=== PATIENT | male | born 1965 | race Caucasian/White ===

== ENCOUNTER → 2019-08-27 09:46 | Outpatient (CLI) | payer BC, SELFPAY ==
--- NOTE | 2019-08-27 10:05 | XR_ITS ---
PROCEDURE: XR CHEST 2V CLINICAL HISTORY: ACUTE VIRAL BRONCHITIS, WHEEZING Wheezing cough shortness of air COMPARISON: CXR CHEST(2 VIEWS-NOT PORTABLE) from 05/19/2014 FINDINGS: The cardiomediastinal silhouette and pulmonary vascularity are within normal limits. The lungs are clear without infiltrates, suspicious nodules, or pleural effusions. Calcified granuloma is present in the right lower lobe. No acute bony findings. IMPRESSION: No acute findings. Dictated by: Saurabh Benson MD 08/27/2019 10:20 Electronically signed by Saurabh Benson MD in [place] 08/27/2019 10:20
[2019-08-27 10:08] LABS: Basophils # 0.1 K/mm3 (0-0.2); Basophils % 0.9 % (0.1-2.0); Eosinophils # 0.1 K/mm3 (0.0-0.4); Eosinophils % 1.4 % (0.1-12.0); Hematocrit 48.4 % (42.0-52.0); Lymphocytes # 2.2 K/mm3 (0.7-4.5); Mean Corpuscular Hemoglobin 28.8 pg (27.0-31.2); Mean Corpuscular Volume 87.2 fl (80-94); Mean Platelet Volume 7.5 fl (7.4-10.4); Monocytes # 0.4 K/mm3 (0.1-1.0); Monocytes % 6.4 % (1.7-9.3); Neutrophils # 3.7 K/mm3 (1.8-7.8); Neutrophils % 57.2 % (37.0-80.0); Platelet Count 243 K/mm3 (142-424); Red Blood Count 5.55 M/mm3 (4.60-6.20); Red Cell Distribution Width 12.8 % (11.5-17.5); White Blood Count 6.5 K/mm3 (4.8-10.8)
[2019-08-27 11:04] LABS: Chloride 100 mmol/L (98-107); Potassium 4.8 mmoL/L (3.5-5.1); Sodium 138 mmol/L (136-145)
[2019-08-27 11:06] LABS: Alanine Aminotransferase 44 U/L (12-78); Alkaline Phosphatase 92 U/L (38-126); Anion Gap 16.8 mEq/L (5-15); Aspartate Amino Transferase 31 U/L (17-59); Bilirubin,Total 0.8 mg/dl (0.2-1.3); Blood Urea Nitrogen 23 mg/dl (9-20); Carbon Dioxide 26 mmol/L (22.0-30.0); Estimated Glomerular Filt Rate 88 ml/min (>60); GFR (African American) 107 ML/MIN (>60)
[2019-08-27 11:07] LABS: Albumin Level 4.7 g/dl (3.5-5.0); Albumin/Globulin Ratio 1.7 (1.1-1.8); Calcium 9.8 mg/dl (8.4-10.2); Creatine Kinase 174 U/L (55-170); Globulin 2.8 g/dL (1.3-3.2); Glucose 153 mg/dl (74-100); Total Protein,Serum 7.5 g/dl (6.3-8.2)
== END ==
PROVIDERS: PCP Internal Medicine Adolescent Medicine; Visit Provider Internal Medicine Adolescent Medicine
DX: J20.8 Acute bronchitis due to other specified organisms (principal); R06.2 Wheezing; M79.10 Myalgia, unspecified site
CPT/HCPCS: 36415; 71046; 80053; 82550; 83735; 85025

== ENCOUNTER → 2019-10-11 13:11 | Outpatient (CLI) | payer BC, SELFPAY ==
[2019-10-11 16:36] LABS: Chloride 98 mmol/L (98-107)
[2019-10-11 16:37] LABS: Potassium 4.9 mmoL/L (3.5-5.1); Sodium 136 mmol/L (136-145)
[2019-10-11 16:39] LABS: Blood Urea Nitrogen 15 mg/dl (9-20); Estimated Glomerular Filt Rate 101 ml/min (>60); GFR (African American) 122 ML/MIN (>60)
[2019-10-11 16:40] LABS: Anion Gap 13.9 mEq/L (5-15); Calcium 9.9 mg/dl (8.4-10.2); Carbon Dioxide 29 mmol/L (22.0-30.0); Glucose 104 mg/dl (74-100)
== END ==
PROVIDERS: Visit Provider Nurse Practitioner Family
DX: R25.2 Cramp and spasm (principal)
CPT/HCPCS: 36415; 80048; 83735

== ENCOUNTER → 2021-06-18 11:10 | Outpatient (CLI) | payer BC, SELFPAY ==
[2021-06-18 12:16] LABS: Chloride 100 mmol/L (98-107); Sodium 137 mmol/L (136-145)
[2021-06-18 12:17] LABS: Potassium 4.3 mmoL/L (3.5-5.1)
[2021-06-18 12:19] LABS: Blood Urea Nitrogen 17 mg/dl (9-20)
[2021-06-18 12:20] LABS: Anion Gap 15.3 mEq/L (5-15); Calcium 9.2 mg/dl (8.4-10.2); Carbon Dioxide 26 mmol/L (22.0-30.0); Estimated Glomerular Filt Rate 117 ml/min (>60); GFR (African American) 142 ML/MIN (>60); Glucose 144 mg/dl (74-100)
[2021-06-18 12:51] LABS: Hemoglobin A1C 7.1 % (4.0-6.0)
== END ==
PROVIDERS: Visit Provider Internal Medicine Adolescent Medicine
DX: I10 Essential (primary) hypertension (principal)
CPT/HCPCS: 36415; 80048; 83036

== ENCOUNTER → 2021-07-13 08:56 | Outpatient (CLI) | payer BC, SELFPAY | PROVIDERS: PCP Internal Medicine Adolescent Medicine; Visit Provider Surgery | DX: Z01.812 Encounter for preprocedural laboratory examination (principal); Z11.52 Encounter for screening for COVID-19; Z12.11 Encounter for screening for malignant neoplasm of colon | CPT/HCPCS: C9803; U0003; U0005 ==

== ENCOUNTER 2021-07-16 09:08 | Day surgery (SDC) | payer BC, SELFPAY ==
[2021-07-12 11:05] VITALS: BMI 37.0
[2021-07-16 09:21] VITALS: BP 152/90; PULSE 84; RESP 18; TEMP 36.8; O2SAT 96
[2021-07-16 09:31] VITALS: O2SAT 96
--- NOTE | 2021-07-16 09:34 | P.PN_ITS ---
[facility] Anesthesia Checklist - Patient Identification Patient Identification: Arm Band - Structural Data Admitted From: Home Planned Operative Procedure/s: Colonoscopy Consent for Planned Operative Procedure(s) Verified: Yes - NPO Status Verified Time NPO: 00:00 - Airway Assessment C-Spine Mobility Assessed: Yes TMJ Mobility Assessed: Yes Dentition: Good Dentition - Neurological Assessment Level of Consciousness: Awake Hx Seizures: No Numbness or tingling in extremities: No - Anesthesia Plan Anesthesia Risk discussed: Yes Anesthesia Plan: Verified ASA Class: II Anesthesia Type: MAC [facility] History I have reviewed the patient's past medical history: Yes Medical History: Reports:: Diabetes Mellitus Type 2, Hypertension, MRSA (abdomen) Denies:: Cancer, Diabetes Mellitus Type 1, Internal Pacemaker, Seizures *Have you ever received a pneumonia vaccine?: No *Have you received a flu vaccine this season?: No Anesthesia experience/problems:: None Other Surgeries: No: Pacemaker Amputation: No - *Social History Last grade of school completed: Some college Smoking Status: Never smoker Alcohol Intake: never Substance Use Type: denies use *Occupational Status:: employed Housing: house Household Members: spouse *Travel in the last 8 weeks: None Family Hx:: Cancer, Coronary Artery Disease
--- NOTE | 2021-07-16 09:58 | P.PCN_ITS ---
- Procedure: Date: 07/16/21 Patient Date of :: 1965 Procedure Performed:: Colonoscopy with polypectomy Indications:: Screening Performing Provider:: Andrés Pillai MD Referring Provider:: . Sedation:: Monitored anesthesia care Procedure:: After informed consent was obtained the patient was taken to the endoscopy suite. Sedation ensued after the patient was transferred to the left lateral decubitus position. Pulse, blood pressure, and oxygen saturation were monitored throughout the procedure. Digital rectal exam revealed no significant ab normality. The colonoscope was placed in position. The entire colon was evaluated. The colonoscope was carefully removed and the patient was transferred to recovery in stable condition. Please see findings and specimens below for detail. Findings:: Mild anal stenosis Scattered diverticulosis Bowel preparation moderate to poor Fairly significant lack of relaxation/spasticity Complex polyps (see specimens) Specimens:: Lobulated/partially ulcerated sessile polyp at 70 cm (snare) Sessile lobulated polyp at 55 cm (snare) Recommendations:: Timing a repeat colonoscopy is pending pathology but likely between 6-12 months secondary to size/nature of polyps and limitations of visualization due to moderate to poor bowel preparation and spasticity/lack of relaxation. Complications:: No immediate Estimated blood obtained (mL): 1
[2021-07-16 09:59] VITALS: BP 148/82; PULSE 84; RESP 18; TEMP 36.4; O2SAT 90
[2021-07-16 10:09] VITALS: BP 130/91; PULSE 82; RESP 18; O2SAT 94
[2021-07-16 10:19] VITALS: BP 93/63; PULSE 67; RESP 16; O2SAT 96
[2021-07-16 10:30] VITALS: BP 122/68; PULSE 68; RESP 18; O2SAT 97
[2022-03-27 10:56] LABS: POC Glucose,Bedside 135 (70-110)
== END 2021-07-16 10:30 | disposition home or self-care (01) ==
LOC: OUTP 09:09
PROVIDERS: PCP Internal Medicine Adolescent Medicine; Visit Provider Surgery
PROC: 0DJD8ZZ Inspection of Lower Intestinal Tract, Via Natural or Artificial Opening Endoscopic (ICD-10-PCS; CPT 45385; principal; 2021-07-16 10:00)
DX: Z12.11 Encounter for screening for malignant neoplasm of colon (principal); K62.4 Stenosis of anus and rectum; K63.5 Polyp of colon; K57.32 Diverticulitis of large intestine without perforation or abscess without bleeding; K58.9 Irritable bowel syndrome, unspecified; E11.9 Type 2 diabetes mellitus without complications; I10 Essential (primary) hypertension; Z86.14 Personal history of Methicillin resistant Staphylococcus aureus infection; Z80.9 Family history of malignant neoplasm, unspecified; Z82.49 Family history of ischemic heart disease and other diseases of the circulatory system
CPT/HCPCS: 45385; 82962; J2704

== ENCOUNTER → 2023-06-10 16:16 | Outpatient (CLI) | payer BC, SELFPAY ==
[2023-06-10 17:00] LABS: Basophils # 0.1 K/mm3 (0-0.2); Basophils % 1.1 % (0.1-2.0); Eosinophils # 0.2 K/mm3 (0.0-0.4); Eosinophils % 2.7 % (0.1-12.0); Hematocrit 47.2 % (42.0-52.0); Lymphocytes % 37.1 % (10-50); Mean Corpuscular HGB Conc 33.9 g/dL (31.8-35.4); Mean Corpuscular Hemoglobin 29.6 pg (27.0-31.2); Mean Corpuscular Volume 87.5 fl (80-94); Mean Platelet Volume 8.2 fl (7.4-10.4); Monocytes # 0.5 K/mm3 (0.1-1.0); Monocytes % 6.3 % (1.7-9.3); Neutrophils # 4.3 K/mm3 (1.8-7.8); Neutrophils % 52.9 % (37.0-80.0); Platelet Count 235 K/mm3 (142-424); Red Blood Count 5.39 M/mm3 (4.60-6.20); White Blood Count 8.1 K/mm3 (4.8-10.8)
[2023-06-10 17:13] LABS: Alanine Aminotransferase 41 U/L (12-78); Albumin Level 4.7 g/dl (3.5-5.0); Albumin/Globulin Ratio 1.7 (1.1-1.8); Alkaline Phosphatase 85 U/L (38-126); Anion Gap 11.2 mEq/L (5-15); Aspartate Amino Transferase 43 U/L (17-59); Bilirubin,Total 0.7 mg/dl (0.2-1.3); Blood Urea Nitrogen 19 mg/dl (9-20); Calcium 9.2 mg/dl (8.4-10.2); Carbon Dioxide 29 mmol/L (22.0-30.0); Chloride 100 mmol/L (98-107); Estimated Glomerular Filt Rate 77 ml/min (>60); GFR (African American) 93 ML/MIN (>60); Globulin 2.7 g/dL (1.3-3.2); Glucose 172 mg/dl (74-100); Potassium 4.2 mmoL/L (3.5-5.1); Sodium 136 mmol/L (136-145); Total Protein,Serum 7.4 g/dl (6.3-8.2)
[2023-06-10 17:18] LABS: C-Reactive Protein 2.4 mg/L (0-4)
[2023-06-10 17:43] LABS: Thyroid Stimulating Hormone 2.26 uIU/mL (0.465-4.68)
[2023-06-10 18:10] LABS: Erythrocyte Sedimentation Rate 12 mm/hr (0-20)
[2023-06-12 12:27] LABS: Rapid Plasma Reagin Ab Titer Non Reactive titer (NonRea<1:1)
[2023-06-19 12:10] LABS: HLA-B27 Negative (.)
[2023-06-23 09:00] LABS: Antinuclear Antibodies, IFA POSITIVE
== END ==
PROVIDERS: PCP Nurse Practitioner Family; Visit Provider Nurse Practitioner Family
DX: H20.12 Chronic iridocyclitis, left eye (principal)
CPT/HCPCS: 36415; 80053; 84443; 85025; 85651; 86038; 86140; 86593; 86812

== ENCOUNTER 2023-10-13 09:28 | Day surgery (SDC) | payer BC, SELFPAY ==
[2023-10-09 14:18] VITALS: BMI 31.1
--- NOTE | 2023-10-13 09:47 | ECG_ITS ---
APPROVED REPORT Exam: Resting ECG HR:52 bpm ECG Measurements Heart Rate 52 AXES VT 153 P 14 QRSd 94 QRS -4 QT 426 T 40 QTc 407 Conclusion SINUS BRADYCARDIA BORDERLINE ECG UNCONFIRMED REPORT Electronically signed by : Dewayne Hemphill MD 10/14/2023 08:21:11
[2023-10-13 09:48] VITALS: BP 116/65; PULSE 54; RESP 16; TEMP 36.6; O2SAT 100
[2023-10-13] MEDS: LACTATED RINGERS 1000ML 1,000 ML 25 ML IV (09:48)
[2023-10-13 09:57] LABS: POC Glucose,Bedside 81 (70-110)
--- NOTE | 2023-10-13 10:26 | EXP.ANES.CKL ---
[facility] Disclaimer: The information contained in this section may have been updated after the patient was seen, as this information can be updated by other users. 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 occupational exposures/hazards: Yes caffeine: Yes [facility] Anesthesia Checklist Patient Identification Patient Identification: Arm Band and Verbal (Name & ) Structural Data Admitted From: Home Planned Operative Procedure/s: Colonoscopy Consent for Planned Operative Procedure(s) Verified: Yes NPO Status Verified Time NPO: 00:00 Additional verifications Anesthesia Reactions: No Airway Assessment Mallampati Score:: Class I C-Spine Mobility Assessed: Yes TMJ Mobility Assessed: Yes Dentition: Good Dentition Neurological Assessment Level of Consciousness: Awake Hx Seizures: No Numbness or tingling in extremities: No Anesthesia Plan Anesthesia Risk discussed: Yes Anesthesia Plan: Verified ASA Class: II Anesthesia Type: MAC
--- NOTE | 2023-10-13 10:28 | HMH.SCOPE ---
Procedure: Date: 10/13/23 Patient Date of :: 1965 Procedure Performed:: Colonoscopy with polypectomy by means other than snare Indications:: History of colon polyps Note: Colonoscopy in June 2021 somewhat complicated by moderate to poor bowel preparation and poor relaxation/spasticity. Mild anal stenosis and diverticulosis noted. Complex adenomas excised at 70 cm and at 55 cm. Performing Provider:: Andrés Pillai MD Referring Provider:: Dr. Hemphill Sedation:: Monitored anesthesia care Procedure:: After informed consent was obtained the patient was taken to the endoscopy suite. Sedation ensued after the patient was transferred to the left lateral decubitus position. Pulse, blood pressure, and oxygen saturation were monitored throughout the procedure. Digital rectal exam revealed no significant abnormality. The colonoscope was placed in position. The entire colon was evaluated. The colonoscope was carefully removed and the patient was transferred to recovery in stable condition. Please see findings and specimens below for detail. Findings:: Bowel preparation fair to moderate Scattered diverticulosis (more pronounced in sigmoid colon) Minuscule left lateral hemorrhoidal tag Significant lack of relaxation/spasticity Small sessile periappendiceal polyp Specimens:: Sessile periappendiceal polyp (cold biopsy forceps) Recommendations:: Timing of repeat colonoscopy is pending pathology will likely be around 3 years secondary to history of significant polyps and lack of relaxation/spasticity. Complications:: No immediate Estimated blood obtained (mL): 1 Colonoscopy Component Colonoscopy Component Was a colonoscopy performed during today's procedure?: Yes Recommended follow up colonoscopy of at least 10 years?: No If no, follow up colonoscopy recommended in ___ years?: (See above) Reason for not recommending >/= 10 yr follow-up interval?: (See above)
[2023-10-13 10:32] VITALS: O2SAT 98
[2023-10-13 11:00] VITALS: BP 86/60; PULSE 72; RESP 18; TEMP 36.2; O2SAT 96
[2023-10-13 11:15] VITALS: BP 116/67; PULSE 68; RESP 18; O2SAT 95
[2023-10-13 11:20] VITALS: BP 116/67; PULSE 74; RESP 16; O2SAT 96
== END 2023-10-13 11:30 | disposition home or self-care (01) ==
PROVIDERS: PCP Internal Medicine Adolescent Medicine; Visit Provider Surgery
PROC: 0DJ08ZZ Inspection of Upper Intestinal Tract, Via Natural or Artificial Opening Endoscopic (ICD-10-PCS; CPT 43235; principal; 2023-10-13 11:30)
DX: Z12.11 Encounter for screening for malignant neoplasm of colon (principal); Z86.010 Personal history of colon polyps; K57.30 Diverticulosis of large intestine without perforation or abscess without bleeding; K64.4 Residual hemorrhoidal skin tags; D12.0 Benign neoplasm of cecum; E11.9 Type 2 diabetes mellitus without complications
CPT/HCPCS: 45380; 82962; 93005

== ENCOUNTER 2023-12-22 01:43 | Emergency (ER) | payer BC, SELFPAY ==
[2023-12-22 01:44] VITALS: BP 133/79; PULSE 47; RESP 18; TEMP 37.1; O2SAT 100; BMI 31.7
--- NOTE | 2023-12-22 01:56 | CT_ITS ---
PROCEDURE INFORMATION: Exam: CTA Abdomen and Pelvis With Contrast Exam date and time: 12/22/2023 2:26 AM Age: 58 years old Clinical indication: Abdominal pain; Acute; Additional info: Severe epigastric/ruq pain radiating to back TECHNIQUE: Imaging protocol: Computed tomographic angiography of the abdomen and pelvis with contrast. Exam focused on the arteries. 3D rendering (Not supervised by radiologist): MIP and/or 3D reconstructed images were created by the technologist. Radiation optimization: All CT scans at this facility use at least one of these dose optimization techniques: automated exposure control; mA and/or kV adjustment per patient size (includes targeted exams where dose is matched to clinical indication); or iterative reconstruction. Contrast material: ISOVUE; Contrast volume: 100 ml; Contrast route: INTRAVENOUS (IV); COMPARISON: CT ANGIO CHEST 12/22/2023 2:26 AM FINDINGS: Aorta: No aortic aneurysm. No aortic dissection. Celiac trunk and mesenteric arteries: No occlusion or significant stenosis. Renal arteries: No occlusion or significant stenosis. Right iliac arteries: No occlusion or significant stenosis. Left iliac arteries: No occlusion or significant stenosis. Liver: No mass. Gallbladder and biliary ducts: Prominent gallstone is seen in the neck of the gallbladder. Pancreas: Unremarkable. No mass. No ductal dilation. Spleen: Unremarkable. No splenomegaly. Adrenal glands: Unremarkable. No mass. Kidneys and ureters: Unremarkable. No solid mass. No hydronephrosis. Stomach and bowel: Unremarkable. No obstruction. No mucosal thickening. Increased density to the mesenteric fat with increased mesenteric lymph nodes. Appendix: No evidence of appendicitis. Intraperitoneal space: Unremarkable. No free air. No significant fluid collection. Lymph nodes: Unremarkable. No enlarged lymph nodes. Urinary bladder: Unremarkable. No mass. Reproductive: Unremarkable as visualized. Bones/joints: No acute fracture. Soft tissues: Fat containing periumbilical hernia. IMPRESSION: 1. Cholelithiasis without definite acute cholecystitis. Prominent stone is seen in the neck of the gallbladder. 2. The abdominal aorta and branches are unremarkable. 3. There is increased density within the central mesenteric fat with some mildly prominent lymph nodes consistent with mesenteric panniculitis.
--- NOTE | 2023-12-22 01:56 | CT_ITS ---
PROCEDURE INFORMATION: Exam: CTA Chest With Contrast Exam date and time: 12/22/2023 2:26 AM Age: 58 years old Clinical indication: Pain; Chest pressure; Additional info: Severe chest pain radiating to back TECHNIQUE: Imaging protocol: Computed tomographic angiography of the chest with contrast. Exam focused on the arteries. 3D rendering (Not supervised by radiologist): MIP and/or 3D reconstructed images were created by the technologist. Radiation optimization: All CT scans at this facility use at least one of these dose optimization techniques: automated exposure control; mA and/or kV adjustment per patient size (includes targeted exams where dose is matched to clinical indication); or iterative reconstruction. Contrast material: ISOVUE; Contrast volume: 100 ml; Contrast route: INTRAVENOUS (IV); COMPARISON: CR XR CHEST 2V 08/27/2019 10:06 AM FINDINGS: Pulmonary arteries: Normal. No pulmonary emboli. Aorta: Unremarkable. No aortic aneurysm. No aortic dissection. Lungs: Unremarkable. No consolidation. No masses. Pleural spaces: Unremarkable. No pneumothorax. No pleural effusion. Heart: Unremarkable. No cardiomegaly. No pericardial effusion. Coronary arteries: Coronary atherosclerosis. Lymph nodes: Unremarkable. No enlarged lymph nodes. Bones/joints: Unremarkable. No acute fracture. Soft tissues: Unremarkable. IMPRESSION: 1. No evidence of aortic dissection or other acute aortic syndrome. 2. Aortic atherosclerosis is present.
--- NOTE | 2023-12-22 02:01 | HMH.EDGENADL ---
Discharge Plan Disposition Patient Disposition: Xfer Other Chief Complaint: Abdominal Pain Prescriptions Prescriptions: No Action Rybelsus 7 mg tablet PO Patient Comments: TAKE 1 TABLET BY MOUTH ONCE DAILY terbinafine HCl 250 mg tablet 250 mg PO Patient Comments: TAKE 1 TABLET BY MOUTH ONCE DAILY lisinopril 20 MG tablet 20 mg PO DAILY atorvastatin 40 mg Tablet 40 mg PO DAILY glimepiride 2 mg Tablet 2 mg PO DAILY Referrals Follow up/Referrals: Dewayne Hemphill MD [Primary Care Provider] - See instructions Clinical Impressions Clinical Impression: Acute gallstone pancreatitis Instructions Patient Instructions: DI for Acute Abdominal Pain Discharge ED Provider: Max Torres General Adult HPI General Chief complaint: Abdominal Pain Stated complaint: Abdominal Pain Time Seen by Provider: 12/22/23 01:49 History of Present Illness HPI narrative: 58-year-old male with history of diabetes, hypertension presents with sudden onset severe epigastric/chest pain radiating to back. Patient also has right upper quadrant pain. He denies any history of intra-abdominal surgery. Denies any recent fever or illness. Started about 2 hours prior to arrival. Related Data Home Medications Medication Instructions Recorded Confirmed lisinopril 20 mg tablet 20 mg PO DAILY bp 07/12/21 10/28/23 atorvastatin 40 mg tablet 40 mg PO DAILY 10/09/23 10/28/23 glimepiride 2 mg tablet 2 mg PO DAILY 10/09/23 10/28/23 semaglutide 7 mg tablet (Rybelsus) mg PO 10/28/23 10/28/23 terbinafine HCl 250 mg tablet 250 mg PO 10/28/23 10/28/23 Allergies Allergy/AdvReac Type Severity Reaction Status Date / Time clindamycin [CLINDAMYCIN] Allergy Severe I-RASH Verified 10/28/23 13:26 [facility] Disclaimer: The information contained in this section may have been updated after the patient was seen, as this information can be updated by other users. 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 caffeine: Yes ROS Obtained: Yes All systems reviewed & no additional complaints except as documented Physical Exam General General appearance: alert and in distress Head Head exam: atraumatic and normocephalic Eye Eye exam: Present normal appearance, PERRL and EOMI ENT ENT exam: Present normal oropharynx and normal external ear exam Neck Neck exam: Present normal inspection and full ROM Chest Chest inspection: Present normal inspection and symmetric chest wall rise; Absent tenderness Respiratory Respiratory exam: Present normal lung sounds bilaterally; Absent respiratory distress Cardiovascular Cardiovascular exam: Present normal rhythm and bradycardia Abdominal Exam Abdominal exam: Present soft, tenderness (Epigastric/right upper quadrant) and guarding; Absent distention Extremities Exam Extremities exam: Present normal inspection; Absent edema or joint swelling Back Exam Back exam: Present normal inspection; Absent tenderness Neurological Exam Neurological exam: Present alert and oriented X3; Absent motor sensory deficit Psychiatric Psychiatric exam: Present normal affect and normal mood Skin Skin exam: Present warm, dry and normal color Lymphatic Lymphatic Findings: no adenopathy Medical Decision Making Medical Records Medical records reviewed: Yes I reviewed the patient's medical records. Rui Inquiry Pt receiving controlled substance: No Rui was queried for this patient: No Vital Signs: 12/22/23 01:44 Temperature 98.7 F Temperature Source Oral Pulse Rate [Right Brachial] 47 L Respiratory Rate 18 Blood Pressure [Right Arm] 133/79 Blood Pressure Mean [Right Arm] 97 02 Sat by Pulse Oximetry 100 Oxygen Delivery Method Room Air Lab Data Lab results reviewed: Yes I reviewed the patient's lab results. Lab Results 12/22/23 01:55: WBC 11.1 H, RBC 5.01, Hgb 15.0, Hct 47.0, MCV 93.9, MCH 30.0, MCHC 32.0, RDW 14.7, Plt Count 274, MPV 7.8, Neut % (Auto) 63.9, Lymph % (Auto) 25.6, [place] % (Auto) 6.8, Eos % (Auto) 2.1, Baso % (Auto) 1.6, Neut # (Auto) 7.1, Lymph # (Auto) 2.9, [place] # (Auto) 0.8, Eos # (Auto) 0.2, Baso # (Auto) 0.2, Sodium 139, Potassium 4.2, Chloride 101, Carbon Dioxide 29, Anion Gap 13.2, BUN 23 H, Creatinine 1.10, Estimated Creat Clear 101, Estimated GFR 69, Est GFR ( Amer) 83, Glucose 113 H, Calcium 9.6, Total Bilirubin 0.5, AST 33, ALT 27, Alkaline Phosphatase 80, Troponin I < 0.01, Total Protein 7.4, Albumin 4.6, Globulin 2.8, Albumin/Globulin Ratio 1.6, Lipase 379 H 12/22/23 02:19: POC Glucose 142 H 12/22/23 01:55 12/22/23 01:55 Orders (Tests/Meds): ED MEDICATIONS Generic Name Dose Route Start Last Admin Trade Name Freq PRN Reason Stop Dose Admin Lactated Ringer's 1,000 mls @ 999 mls/hr 12/22/23 02:00 12/22/23 02:10 Lactated Ringer's 1000 Ml Bag IV 12/22/23 03:00 999 mls/hr .Q1H1M FAYE Administration Discontinued Medications Generic Name Dose Route Start Last Admin Trade Name Freq PRN Reason Stop Dose Admin Acetaminophen 1,000 mg 12/22/23 01:56 12/22/23 02:10 Acetaminophen 500mg Tab PO 12/22/23 01:57 1,000 mg ONCE ONE Administration Iopamidol 100 ml 12/22/23 02:36 12/22/23 02:37 Iopamidol-370 (76%);100ml Bottle IV 12/22/23 02:37 100 ml ONCE ONE Administration Morphine Sulfate 4 mg 12/22/23 01:56 12/22/23 02:10 Morphine 4mg/Ml Syringe IV 12/22/23 01:57 4 mg ONCE ONE Administration Ondansetron HCl 4 mg 12/22/23 01:56 12/22/23 02:10 Ondansetron 4mg/2ml Vial IV 12/22/23 01:57 4 mg ONCE ONE Administration Sodium Chloride 50 ml 12/22/23 02:36 12/22/23 02:38 0.9 % Sodium Chloride 50 Ml Vial IV 12/22/23 02:37 50 ml ONCE ONE Administration Sodium Chloride 10 ml 12/22/23 02:36 12/22/23 02:37 Sodium Chloride 0.9% 10ml Syr (Rad Only) IV 12/22/23 02:37 10 ml ONCE ONE Administration ORDERS Category Date Time Status CT angio abdomen pelvis Stat Cat Scan 12/22/23 01:56 Taken CTA Chest [CT angio chest - dissection] Stat Cat Scan 12/22/23 01:56 Taken CBC w/Auto Diff [Complete Blood Count Auto Diff] Stat Lab 12/22/23 01:55 Completed CMP [Comprehensive Metabolic Panel] Stat Lab 12/22/23 01:55 Completed Lipase Stat Lab 12/22/23 01:55 Completed POC Glucose,Bedside Routine Lab 12/22/23 02:19 Completed Troponin I Q3H Lab 12/22/23 01:55 Completed Troponin I Q3H Lab 12/22/23 05:00 Ordered ECG Data Tracing #1: I reviewed this ECG and interpreted as documented below: Sinus bradycardia with rate of 44, no concerning ST or T wave changes, normal intervals ECG initial impression date: 12/22/23 ECG initial impression time: 02:12 HEART Score History (anamnesis): Slightly suspicious ECG: Normal Age: 45-65 years Risk factors: 1-2 risk factors Troponin: </= normal limit HEART Score: 2 Medical Decision Narrative: 58-year-old male with history of hypertension and diabetes presents with sudden onset severe epigastric pain, started 2 hours prior to arrival. History was obtained interactive discussion with patient, chart. On arrival, patient is [afebrile, hemodynamically stable, satting appropriately, alert, oriented x4, GCS 15], moving all extremities spontaneously. Full physical exam performed and significant for epigastric tenderness, right upper quadrant tenderness Differential includes but is not limited to cholecystitis, pancreatitis, gastritis, perforated hollow viscus, aortic pathology, ACS, PE. Patient was given 1 L IV fluid bolus, Tylenol, Toradol morphine Zofran for symptomatic management and correction of underlying abnormalities. Workup initiated including CBC CMP troponin lipase CTA chest abdomen and pelvis.. On re-evaluation, patient [remains afebrile, HD stable.] Reports some improvement in pain. Laboratory workup independently interpreted by me and significant for elevated lipase at 379, mild leukocytosis, no LFT elevation.. Imaging independently interpreted by me and significant for markedly distended gallbladder with large calcified gallstone in the neck. See radiology read for full review of final results. Given patient history, exam and workup, patient's presentation most likely represents acute gallstone pancreatitis. We do not have GI capabilities in this hospital and so patient requires transfer to higher level of care. Interactive discussion was had with Dr. Singh who accepted the patient in transfer. Procedures Risk/Benefits of Procedure(s) Were Explained: Yes Critical Care Critical Care Time Critical Care Time: No
[2023-12-22 02:03] LABS: Basophils # 0.2 K/mm3 (0-0.2); Basophils % 1.6 % (0.1-2.0); Eosinophils # 0.2 K/mm3 (0.0-0.4); Eosinophils % 2.1 % (0.1-12.0); Lymphocytes # 2.9 K/mm3 (0.7-4.5); Lymphocytes % 25.6 % (10-50); Mean Corpuscular Volume 93.9 fl (80-94); Mean Platelet Volume 7.8 fl (7.4-10.4); Monocytes # 0.8 K/mm3 (0.1-1.0); Monocytes % 6.8 % (1.7-9.3); Neutrophils # 7.1 K/mm3 (1.8-7.8); Neutrophils % 63.9 % (37.0-80.0); Platelet Count 274 K/mm3 (142-424); Red Blood Count 5.01 M/mm3 (4.60-6.20); Red Cell Distribution Width 14.7 % (11.5-17.5); White Blood Count 11.1 K/mm3 (4.8-10.8)
[2023-12-22 02:05] LABS: Chloride 101 mmol/L (98-107)
[2023-12-22 02:06] LABS: Potassium 4.2 mmoL/L (3.5-5.1); Sodium 139 mmol/L (136-145)
[2023-12-22 02:08] LABS: Alanine Aminotransferase 27 U/L (12-78); Alkaline Phosphatase 80 U/L (38-126); Anion Gap 13.2 mEq/L (5-15); Aspartate Amino Transferase 33 U/L (17-59); Bilirubin,Total 0.5 mg/dl (0.2-1.3); Blood Urea Nitrogen 23 mg/dl (9-20); Carbon Dioxide 29 mmol/L (22.0-30.0); Creatinine Clearance Estimated 101 mL/min (50-200); Estimated Glomerular Filt Rate 69 ml/min (>60); GFR (African American) 83 ML/MIN (>60); Lipase 379 U/L (23-300)
[2023-12-22 02:09] LABS: Albumin Level 4.6 g/dl (3.5-5.0); Albumin/Globulin Ratio 1.6 (1.1-1.8); Calcium 9.6 mg/dl (8.4-10.2); Globulin 2.8 g/dL (1.3-3.2); Glucose 113 mg/dl (74-100); Total Protein,Serum 7.4 g/dl (6.3-8.2)
[2023-12-22] MEDS: MORPHINE 4MG/ML SYRINGE 4 MG IV (02:10)
[2023-12-22] MEDS: LACTATED RINGERS 1000ML 1,000 ML 999 ML IV (02:10)
[2023-12-22] MEDS: ACETAMINOPHEN 500MG TAB 1000 MG PO (02:10)
[2023-12-22] MEDS: ONDANSETRON 4MG/2ML VIAL 4 MG IV (02:10)
--- NOTE | 2023-12-22 02:11 | ECG_ITS ---
APPROVED REPORT Exam: Resting ECG HR:44 bpm ECG Measurements Heart Rate 44 AXES WA 148 P 20 QRSd 99 QRS 25 QT 452 T 62 QTc 404 Conclusion SINUS BRADYCARDIA BORDERLINE ECG Electronically signed by : RENÉ FIGUEROA, 12/23/2023 21:50:54
[2023-12-22 02:21] LABS: Troponin I < 0.01 ng/ml (0.00-0.034)
--- NOTE | 2023-12-22 02:24 | PC.NURSE ---
pt. to radiology
[2023-12-22 02:27] LABS: POC Glucose,Bedside 142 (70-110)
[2023-12-22] MEDS: SODIUM CHLORIDE 0.9% 10ML SYR (RAD ONLY) 10 ML IV (02:37)
[2023-12-22] MEDS: IOPAMIDOL-370 (76%);100ML BOTTLE 100 ML IV (02:37)
--- NOTE | 2023-12-22 02:37 | PC.NURSE ---
on phone with [facility] MD's
[2023-12-22] MEDS: 0.9 % SODIUM CHLORIDE 50 ML VIAL IV (02:38)
[2023-12-22] MEDS: KETOROLAC 30MG/ML VIAL 30 MG IV (02:45)
[2023-12-22 02:51] VITALS: BP 151/69; PULSE 43; RESP 16; O2SAT 98
--- NOTE | 2023-12-22 03:01 | PC.NURSE ---
Report called to Rupal LAYNE at ED.
[2023-12-22 03:20] VITALS: BP 151/69; PULSE 43; RESP 18; TEMP 37.1; O2SAT 97
== END 2023-12-22 03:26 | disposition other institution (70) ==
PROVIDERS: Emergency Provider Emergency Medicine; PCP Internal Medicine Adolescent Medicine
DX: R10.13 Epigastric pain (principal); R10.11 Right upper quadrant pain; M54.6 Pain in thoracic spine; K85.10 Biliary acute pancreatitis without necrosis or infection; R00.1 Bradycardia, unspecified; I10 Essential (primary) hypertension; E11.9 Type 2 diabetes mellitus without complications; Z79.84 Long term (current) use of oral hypoglycemic drugs
CPT/HCPCS: 71275; 74174; 80053; 82962; 83690; 84484; 85025; 93005; 96361; 96374; 96375; 99285; J1885; J2270; J2405; J7120; Q9967

== ENCOUNTER 2024-09-06 08:25 | Day surgery (SDC) | payer BC, SELFPAY ==
[2024-09-05 11:03] VITALS: BMI 34.4
[2024-09-06] VITALS (7 sets, daily range): BP systolic 141–175; BP diastolic 78–92; PULSE 50–55; RESP 16–18; TEMP 36.1–36.6; O2SAT 98–100
[2024-09-06] MEDS: TETRACAINE 0.5% OPTH SOL 15ML OP ×3 (09:14→09:22)
[2024-09-06] MEDS: CYCLOPENTOLATE 2% OPHTH SOLN 2ML BOTTLE OP ×3 (09:14→09:22)
[2024-09-06] MEDS: PHENYLEPHRINE 2.5% OPHTH SOLN 2ML OP ×3 (09:14→09:22)
[2024-09-06 09:25] LABS: POC Glucose,Bedside 164 (70-110)
[2024-09-06] MEDS: MIDAZOLAM 2MG/2ML VIAL 1 MG IV (10:10)
[2024-09-06] MEDS: SODIUM CHLORIDE 0.9% 10ML FLUSH SYRINGE 10 ML IV (10:10)
[2024-09-06] MEDS: TIMOLOL 0.5% OPTH SOLN 5ML OP (10:18)
[2024-09-06] MEDS: LIDOCAINE 1% PF 2ML AMPULE 2 ML IJ (10:19)
[2024-09-06] MEDS: TOBRAMYCIN/DEX OPTH SUSP 2.5ML OP (10:19)
--- NOTE | 2024-09-06 11:49 | HMH.PROCNOTE ---
[facility] Procedure Note Date: 09/06/24 Time: 11:49 Procedure Note:: Preoperative Diagnosis: Cataract combined NS Cortical Complex [Left] Eye Postop diagnosis: same Operation: Microscopic phacoemulsification with intraocular lens implant [Left] Eye Specimen: None Blood Loss: None The patient was examined in the office with a complaint of poor vision in the [left] eye. The patient reports that this interferes with ADLs such as reading, watching TV and/or driving or the vision is like looking through a foggy haze and is very troubling. The patient was examined and found to have a visually significant cataract with best corrected vision of [20/HM] by refraction and/or glare testing. Treatment options, risks and benefits were explained and the patient elected to have cataract surgery in an attempt to improve their vision. The patient had the eye anesthetized with topical tetracaine, the eye ways prepped and draped in the usual fashion for cataract surgery. A paracentesis and a temporal keratotomy were made. 0.2cc of 1% lidocaine PF was placed into the anterior chamber. And aqueous/viscoelastic exchange was done and a 360 degree capsulorexis was performed. Through hydrodissection and delineation with BSS on a cannula was done. The lens nucleus was phecoemulsified with CDE of [8.28]. Residual cortical material was removed using automated I&A The capsular bag was deepened with viscoelastica and a PCIOL was placed in the capsular bag with good centration and stability. Residual viscoelastic was removed using automated I&A. The keratotomy incision was hydrated with BSS on a cannula. The wound were checked and found to be water tight. IOP was checked digitally and adjusted as needed so as not to be too high. 1 drop of timolol 0.5%, ofloxacin, prednisolone acetate and ketorolac was instilled and eye shield taped over the eye. The patient was taken to recovery in good condition and will be seen postoperatively.
== END 2024-09-06 10:45 | disposition home or self-care (01) ==
PROVIDERS: PCP Internal Medicine Adolescent Medicine; Visit Provider Ophthalmology
PROC: (CPT 66984; principal; 2024-09-06 10:30)
DX: H25.012 Cortical age-related cataract, left eye (principal)
CPT/HCPCS: 66984; 82962; J2250; V2632

== ENCOUNTER 2025-03-25 10:06 | Outpatient (CLI) | payer BC, SELFPAY ==
--- NOTE | 2025-03-25 | XR_ITS ---
PROCEDURE INFORMATION: Exam: XR Bilateral Sacroiliac Joints Exam date and time: 03/25/2025 10:36 AM Age: 59 years old Clinical indication: Pain in coccyx area TECHNIQUE: Imaging protocol: XR bilateral XR of the sacroiliac joints. Views: 3 or more views. COMPARISON: CR Hip R 03/25/2025 10:32 AM FINDINGS: Bones/joints: Degenerative Changes in the sacroiliac joints and both hips. There is no evidence of acute fracture.There is no evidence of malalignment or dislocation. Soft tissues: Normal. IMPRESSION: 1. Degenerative Changes in the sacroiliac joints and both hips. 2. There is no evidence of acute fracture.There is no evidence of malalignment or dislocation.
--- NOTE | 2025-03-25 | XR_ITS ---
PROCEDURE INFORMATION: Exam: XR Right Hip Exam date and time: 03/25/2025 10:32 AM Age: 59 years old Clinical indication: Hip pain; Right hip TECHNIQUE: Imaging protocol: Radiologic exam of the right hip. Views: 2 or 3 views hip with pelvis when performed. COMPARISON: CT ANGIO ABDOMEN PELVIS 12/22/2023 2:26 AM FINDINGS: Bones/joints: Severe degenerative changes in the right hip. Moderate degenerative changes in the left hip. There is no evidence of acute fracture.There is no evidence of malalignment or dislocation. Soft tissues: Unremarkable. IMPRESSION: 1. Severe degenerative changes in the right hip. Moderate degenerative changes in the left hip. 2. There is no evidence of acute fracture.There is no evidence of malalignment or dislocation.
--- OUTSIDE RECORDS SUMMARY | 2025-03-25 10:09 | XMS_ITS | Clinical Summary ---
Author Organization [facility] Address [address] [place] [address] Care Team Providers Care Net Applications Developer Name Role Phone Dewayne Hemphill MD Primary Care Provider [phone] Allergies Active Allergy Reactions Criticality Noted Date Comments Clindamycin Rash High 10/13/2023 Vancomycin Hives,Itching Medium 12/22/2023 Medications atorvastatin (Lipitor) 40 MG tablet Take 1 tablet (40 mg) by mouth every night. Active Blood Glucose Monitoring Suppl (ONE TOUCH ULTRA 2) w/Device kit device kit 1 kit 2 (two) times a day. Use as instructed Active dorzolamide (Trusopt) 2 % ophthalmic solution Administer 1 drop into the left eye 1 (one) time each day. Active glimepiride (Amaryl) 2 MG tablet Take 1 tablet (2 mg) by mouth 1 (one) time each day with breakfast. Active glucose blood test strip 1 each by Other route 2 (two) times a day. Use as instructed Active OneTouch Delica 33G Lancets (OneTouch Delica Lancets 33G) misc Inject 1 each into the skin 2 (two) times a day. Use as instructed Active metFORMIN (Glucophage) 1000 MG tablet Take 1 tablet (1,000 mg) by mouth 2 (two) times a day with meals. Active prednisoLONE acetate (Pred-Forte) 1 % ophthalmic suspension Administer 1 drop into the left eye 2 (two) times a day. Active terbinafine (LamISIL) 250 MG tablet Take 1 tablet (250 mg) by mouth 1 (one) time each day. Active Mounjaro 5 MG/0.5ML solution pen-injector solution pen-injector Inject 0.5 mL (5 mg) under the skin 1 (one) time per week. Active semaglutide (Rybelsus) 7 MG tablet Take 7 mg by mouth 1 (one) time each day before breakfast. Active cyclopentolate (Cyclogyl) 1 % ophthalmic solution Administer 1 drop into both eyes every night. Active valACYclovir (Valtrex) 1 g tablet Take 1 tablet (1,000 mg) by mouth 1 (one) time each day. Active latanoprost (Xalatan) 0.005 % ophthalmic solution Administer 1 drop into affected eye(s) 1 (one) time each day. Active ibuprofen 400 MG tablet Take 1 tablet (400 mg) by mouth every 6 (six) hours if needed for moderate pain. Active lisinopril 40 MG tablet Take 1 tablet (40 mg) by mouth 1 (one) time each day. 30 tablet 4 Active methocarbamol (Robaxin) 500 MG tablet Take 1 tablet (500 mg) by mouth 4 (four) times a day for 7 days. 28 tablet 4 Active naloxone (Narcan) 4 mg/0.1 mL nasal spray 1. Give 1 spray in nostril for no/slow breathing or cannot wake after opioid use 2. Call 911 3. Repeat in other nostril if symptoms continue 1 each 4 Active Additional Information Patient not taking.Reported on 01/05/2024 oxyCODONE (Roxicodone) 5 MG immediate release tablet Take 1 tablet (5 mg) by mouth every 6 (six) hours if needed for severe pain. 20 tablet 4 Active Active Problems Problem Noted Date Diagnosed Date Cellulitis of abdominal wall 01/05/2024 Bradycardia 12/26/2023 Overview (12/26/2023): Asymptomatic Monitor on tele Hyponatremia 12/26/2023 Hypocalcemia 12/26/2023 Bile leak 12/25/2023 Overview (12/25/2023): GI consulted ERCP 12/[address] Zosyn Resolved Problems Problem Noted Date Diagnosed Date Resolved Date Electrolyte abnormality 12/25/2023 07/0 08/2023 Gallstone pancreatitis 12/22/202312/29 Overview (12/25/2023): 12/23 -Subtotal fenestrated cholecystectomy with CLIFFORD drain placement x 2 Symptomatic cholelithiasis 12/22/2023 0 12/30/2023 Social History Tobacco Use Types Packs/Day Years Used Date Smoking Tobacco: Never Smokeless Tobacco: Never Tobacco Cessation:Counseling Given: Not Answered Alcohol Use Standard Drinks/Week Comments Never 0 (1 standard drink = 0.6 oz pur e alcohol) Humiliation, Afraid, Rape, and Kick questionnair e Answer Date Recorded Within the last year, have y ou been afraid of your partner or ex-partner? No 12/23/2023 Within the last year, have y ou been humiliated or emotionally abused in other ways by your partner or ex-partner? No Within the last year, have y ou been kicked, hit, slapped, or otherwise physically hurt by your partner or ex-partner? No 12/23/2023 Within the last year, have y ou been raped or forced to have any kind of sexual activity by your partner or ex-partner? No 12/23/2023 PHQ-2 Answer Date Recorded Patient Health Questionnaire-2 Score 0 01/05/2024 Hunger Vital Sign Answer Date Recorded Within the past 12 months, y ou worried that your food would run out before you got the money to buy more. Never true 12/23/19 24 Within the past 12 months, t he food you bought just didn't last and you didn't have money to get more. Never true 12/23/2023 PRAPARE - Transportation Answer Date Re corded In the past 12 months, has l ack of transportation kept you from medical appointments or from getting medications? No 11/28 In the past 12 months, has l ack of transportation kept you from meetings, work, or from getting things needed for daily living? No 12/23/2023 Housing Stability Vital Sign Answer Lucas e Recorded In the last 12 months, was t here a time when you were not able to pay the mortgage or rent on time? No 12/23/2023 In the last 12 months, how many places have you lived? 1 12/23/2023 In the last 12 months, was t here a time when you did not have a steady place to sleep or slept in a mcc (including now)? No 12/23/2023 Utilities Answer Date Recorded In the past 12 months has e [employer], gas, oil, or water company threatened to shut off services in your home? No 12/23/2023 Sex and Gender Information Value Date Recorded Sex Assigned at Not on file Legal Sex Male 2:36 AM EDT Gender Identity Not on file Sexual Orientation Not on file Last Filed Vital Signs Vital Sign Reading Time Taken Comments Blood Pressure 134/73 02/24/2024 9:25 AM EDT Pulse 46 02/24/2024 9:15 AM EDT Temperature 36.7 C (98 F) 02/24/2024 9:00 AM EDT Respiratory Rate 14 02/24/2024 9:15 AM EDT Oxygen Saturation 98% 02/24/2024 9:15 AM EDT Inhaled Oxygen Concentration - - Weight 99.6 kg (219 lb 9.3 oz) 02/24/2024 7:23 A M EDT Height 177.8 cm (5' 10 ) 02/24/2024 7:23 AM EDT Body Mass Index 31.51 02/24/2024 7:23 AM EDT Plan of Treatment Health Maintenance Due Date Last Done Comments [facility]-/Child/Adol SDOH Screenings 1965 [facility]- SDOH Screenings 10/02/1983 [facility]-Adult SDOH Screenings 10/02/1983 [facility]-DTaP,Tdap,and Td Vaccine s (1 - Tdap) 1984 [facility]-Hepatitis B Vaccines (1 of 3 - 19+ 3-dose series) 1984 CT Colonography 2010 Colonoscopy 2010 FIT-DNA 2010 FIT 2010 FOBT 2010 Sigmoidoscopy 2010 [facility]-Colorectal Cancer Screening 2010 [facility]-Pneumococcal Vaccine: 50 + Years (1 of 1 - PCV) 10/02/2015 [facility]-Zoster Vaccines (1 of 2) 10/02/2015 [facility]-Depression Screening 01/04/2025 01/05/2024 [id number] Vaccine (1 - 2023- season) 2025 [facility]-Influenza Vaccine (#1) 2025 [facility]-HIV Screening Completed 12/22/2023 [facility]-Hepatitis C Screening Completed 12/22/2023 [facility]-Obesity Intervention Completed 024, 12/22/2023 HPV Vaccines Aged Out No longer eligi ble based on patient's age to complete this topic [facility]-HIB Vaccines Aged Out No longer e ligible based on patient's age to complete this topic [facility]-Hepatitis A Vaccines Aged Out No longer eligible based on patient's age to complete this topic [facility]-IPV Vaccines Aged Out No longer e ligible based on patient's age to complete this topic [facility]-Rotavirus Vaccines Aged Out No lo nger eligible based on patient's age to complete this topic Medical Devices Implanted Type Area Repertoire Manager Device Identifier Shelf Expiration Date Model / Serial / Lot Stent Biliary 2.3 X 100mm - [id number] Implanted:Qty: 1 on 12/28/2023 by Jon Winkler RN at [facility] [employer] [facility]-[id number] 08/27/2026 [id number] / / [id number] Stent Gastro Panc 5fr 5cm - [id number] Implanted:Qty: 1 on 12/28/2023 by Jon Winkler RN at [facility]-[id number] 11/02/2026 [id number] / / [id number] Stent Biliary 2.3 X 100mm - [id number] Implanted:Qty: 1 on 12/28/2023 [facility] [facility]-[id number] 08/27/2026 [id number] / / [id number] Procedures Procedure Name Priority Date/Time Associated Diagnosis Comments HEPATITIS C ANTIBODY - ED W/REFLEX TO HCV QUANT PCR STAT 12/22/2023 4:57 AM EDT ED HIV 1/2 ANTIBODY/ANTIGEN SCREEN WITH REFLEX TO HIV I/II DIFFERENTIATION STAT 12/22/2023 4:57 AM EDT from Last 3 Months or Most Recently Relevant to Health Maintenance Results * ED HIV 1/2 Antibody/Antigen Screen w/Reflex to HIV 1/2 Differentiation (12/22/2023 4:57 AM EDT) HIV 1 & 2 Antibody/Antigen Screen Non Reactive Non Reactive 12/22/2023 6:00 AM EDT [facility] Comment:Screening for HIV 1 & 2 antibodies, and P24 antigen is NONREACTIVE. No confirmatory testing is required. Blood Venous blood specimen / Unknown Venipuncture / Unknown 12/22/2023 4:57 AM EDT 12/22/2023 5:18 AM EDT us Javier Schwarz MD LAB BLOOD ORDERABLES Final Resu lt Performing Organization Address City/[facility]/ZIP Co de Phone Number [facility] [address] [place] [address] * Hepatitis C Antibody - ED (12/22/2023 4:57 AM EDT) Hepatitis C Antibody Negative Negative 12/22/2023 5:59 AM EDT [facility] Blood Venous blood specimen / Unknown Venipuncture / Unknown 12/22/2023 4:57 AM EDT 12/22/2023 5:18 AM EDT us Javier Schwarz MD LAB BLOOD ORDERABLES Final Resu lt Performing Organization Address City/[facility] Co de Phone Number [facility] [address] [place] [address] from Last 3 Months or Most Recently Relevant to Health Maintenance Insurance ANTH Advance Directives * Full Code (Latest Code Status on File) Date Activated Date Inactivated Comments 12/22/2023 10:07 AM 12/30/2023 2:35 PM Question Answer Comments Patient has decision-making capacity? Yes Care Teams Net Applications Developer Relationship Specialty Start Date End Date Dewayne Hemphill MD [address] [place] [address] PCP - General Internal Medicine 12/22/23
== END 2025-03-25 23:59 | disposition home or self-care (01) ==
LOC: RAD 10:07
PROVIDERS: PCP Internal Medicine Adolescent Medicine; Visit Provider Internal Medicine Adolescent Medicine
DX: M16.0 Bilateral primary osteoarthritis of hip (principal); M46.1 Sacroiliitis, not elsewhere classified
CPT/HCPCS: 72202; 73502

== ENCOUNTER 2025-03-25 10:57 | Outpatient (CLI) | payer BC, SELFPAY ==
--- OUTSIDE RECORDS SUMMARY | 2025-03-25 11:00 | XMS_ITS | Clinical Summary ---
Author Organization [facility] Address [address] [place] [address] Care Team Providers Care Locomotive Oiler Name Role Phone Dewayne Hemphill MD Primary Care Provider [phone] Allergies Active Allergy Reactions Criticality Noted Date [...] place to sleep or slept in a fpc (including now)? No 12/23/2023 Utilities Answer Date Recorded In the past 12 months has e [employer], gas, oil, or water company threatened to [...] of 2) 10/02/2015 [facility]-Depression Screening 01/04/2025 01/05/2024 [id number] Vaccine (1 - 2023- season) 2025 [facility]-Influenza [...] this topic Medical Devices Implanted Type Area Rail Car Repair Carman Device Identifier Shelf Expiration Date Model / Serial / Lot Stent Biliary 2.3 X 100mm - [id number] Implanted:Qty: 1 on 12/28/2023 by Jon Winkler RN at [facility] [employer] [facility]-[id number] 08/27/2026 [id number] / / [id number] Stent Gastro Panc 5fr 5cm - [id number] Implanted:Qty: 1 on 12/28/2023 by Jon Winkler RN at [facility]-[id number] 11/02/2026 [id number] / / [id number] Stent Biliary 2.3 X 100mm - [id number] Implanted:Qty: 1 on 12/28/2023 [facility]-[id number] 08/27/2026 [id number] / / [id number] Procedures Procedure Name Priority Date/Time Associated Diagnosis [...] ORDERABLES Final Resu lt Performing Organization Address City/[facility]/ZIP Co de Phone Number [facility]ALTHCARE [facility] [address] [place] [address] * Hepatitis C Antibody - ED (12/22/2023 4:57 AM EDT) Hepatitis C Antibody Negative Negative 12/22/2023 5:59 AM EDT [facility] Blood Venous blood specimen / Unknown Venipuncture / Unknown 12/22/2023 4:57 AM EDT 12/22/2023 5:18 AM EDT us Javier Schwarz MD LAB BLOOD ORDERABLES Final Resu lt Performing Organization Address City/[facility] Co de Phone Number [facility]ALTHCARE [facility] [address] [place] [address] from Last 3 Months or Most Recently Relevant to Health Maintenance Insurance ANTH Advance Directives * Full Code (Latest Code Status on File) Date Activated Date Inactivated Comments 12/22/2023 10:07 AM 12/30/2023 2:35 PM Question Answer Comments Patient has decision-making capacity? Yes Care Teams Locomotive Oiler Relationship Specialty Start Date End Date Dewayne Hemphill MD [address] [place] [address] PCP - General Internal Medicine 12/22/23
[2025-03-25 11:19] LABS: Hematocrit 42.5 % (42.0-52.0); Hemoglobin 14.3 g/dL (14.1-18.0); Immature Granulocytes % 0.4 %; Mean Corpuscular HGB Conc 33.6 g/dL (31.8-35.4); Mean Corpuscular Hemoglobin 28.5 pg (27.0-31.2); Mean Corpuscular Volume 84.8 fl (80-94); Nucleated Red Blood Cells % 0 %; Platelet Count 232 K/mm3 (142-424); Red Blood Count 5.01 M/mm3 (4.60-6.20); Red Cell Distribution Width-SD 37.8 fL; White Blood Count 5.6 K/mm3 (4.8-10.8)
[2025-03-25 11:36] LABS: Hemoglobin A1C 7.9 % (4.0-6.0)
[2025-03-25 12:38] LABS: Alanine Aminotransferase 33 U/L (12-78); Albumin Level 4.3 g/dl (3.5-5.0); Albumin/Globulin Ratio 1.9 (1.1-1.8); Alkaline Phosphatase 98 U/L (38-126); Anion Gap 12.5 mEq/L (5-15); Aspartate Amino Transferase 26 U/L (17-59); Bilirubin,Total 1.0 mg/dl (0.2-1.3); Blood Urea Nitrogen 16 mg/dl (9-20); Calcium 9.4 mg/dl (8.4-10.2); Carbon Dioxide 25 mmol/L (22.0-30.0); Chloride 102 mmol/L (98-107); Cholesterol 103 mg/dl (140-200); Creatinine,Serum 0.80 mg/dl (0.66-1.25); Estimated Glomerular Filt Rate 99 ml/min (>60); GFR (African American) 120 ML/MIN (>60); Globulin 2.3 g/dL (1.3-3.2); Glucose 172 mg/dl (74-100); HDL Cholesterol 39 mg/dl (40-60); Potassium 4.5 mmoL/L (3.5-5.1); Sodium 135 mmol/L (136-145); Total Protein,Serum 6.6 g/dl (6.3-8.2); Triglycerides 110 mg/dl (30-150)
== END 2025-03-25 23:59 | disposition home or self-care (01) ==
LOC: LAB 10:59
PROVIDERS: PCP Internal Medicine Adolescent Medicine; Visit Provider Internal Medicine Adolescent Medicine
DX: E11.69 Type 2 diabetes mellitus with other specified complication (principal); J20.9 Acute bronchitis, unspecified
CPT/HCPCS: 36415; 80053; 80061; 83036; 85025